=== PATIENT | female | born 1975 | race Caucasian/White ===

== ENCOUNTER 2016-08-05 09:59 | Emergency (ER) | payer BC ==
--- NOTE | 2016-08-05 11:00 | Emergency Department Record ---
History of Present Illness - General Chief complaint: Edema Stated complaint: LEG SWELLING Time Seen by Provider: 08/05/16 10:49 Source: Patient, RN notes reviewed Mode of Arrival: Ambulatory - History of Present Illness Initial comments: patient states swelling in her legs which started 2 days ago the right worse than the left and some right thigh pain. patient has breast cancer and needs more breast surgery and she also was diagnosed with polycystic ovarian disease and started on meloxicam 15 mg on 07/21/2016 for that. Onset/Timin -: Days(s) Location: Bilateral, Lower Leg, Thigh History of Same: Yes Improves with: Nothing Worsens with: Nothing Associated Symptoms: Denies other symptoms - Related Data Home Medications Medication Instructions Recorded Confirmed Last Taken Aspirin [Aspirin Ec] 81 mg PO QD tab 07/21/16 08/05/16 08/05/16 Cholecalciferol (Vitamin D3) 5,000 unit PO DAILY 08/05/16 08/05/16 08/05/16 [Vitamin D3] Previous Rx's Medication Instructions Recorded Triamterene/Hydrochlorothiazid 1 udcap PO DAILY #15 capsule 08/05/16 [Dyazide] Allergies Allergy/AdvReac Type Severity Reaction Status Date / Time cephalexin monohydrate Allergy Severe DIFFICULTY Verified 08/05/16 10:35 BREATHING levofloxacin Allergy Severe HIVES Verified 08/05/16 10:35 prednisone AdvReac Intermediate SKIN Verified 08/05/16 10:35 IRRITATION Travel Screening - Travel/Exposure Within Last 30 Days Have you traveled within the last 30 days?: No - Travel/Exposure Within Last Year Have you traveled outside the [place] in the last year?: No - Additonal Travel Details Have you been exposed to anyone with a communicable illness?: No - Travel Symptoms Symptom Screening: None Review of Systems Reviewed: No additional complaints except as noted below Constitutional: Reports: As per HPI. Denies: Chills, Fever, Malaise, Night sweats, Weakness, Weight change Eyes: Reports: As per HPI. Denies: Eye discharge, Eye pain, Photophobia, Vision change ENT: Reports: As per HPI. Denies: Congestion, Dental pain, Ear pain, Epistaxis , Hearing loss, Throat pain Respiratory: Reports: As per HPI. Denies: Cough, Dyspnea, Hemoptysis, Stridor, Wheezes Cardiovascular: Reports: As per HPI. Denies: Arrhythmia, Chest pain, Dyspnea on exertion, Edema, Murmurs, Orthopnea, Palpitations, Paroxysmal nocturnal dyspnea, Rheumatic Fever, Syncope Endocrine: Reports: As per HPI. Denies: Fatigue, Heat or cold intolerance, Polydipsia, Polyuria Gastrointestinal: Reports: As per HPI. Denies: Abdominal pain, Constipation, Diarrhea, Hematemesis, Hematochezia, Melena, Nausea, Vomiting Genitourinary: Reports: As per HPI. Denies: Abnormal menses, Discharge, Dyspareunia, Dysuria, Frequency, Hematuria, Incontinence, Retention, Urgency Musculoskeletal: Reports: As per HPI. Denies: Arthralgia, Back pain, Gout, Joint swelling, Myalgia, Neck pain Skin: Reports: As per HPI, Other (edema of both legs worse in the right). Denies: Bruising, Change in color, Change in hair/nails, Lesions, Pruritus, Rash Neurological: Reports: As per HPI. Denies: Abnormal gait, Confusion, Headache, Numbness, Paresthesias, Seizure, Tingling, Tremors, Vertigo, Weakness Psychiatric: Reports: As per HPI. Denies: Anxiety, Auditory hallucinations, Depression, Homicidal thoughts, Suicidal thoughts, Visual hallucinations Hematological/Lymphatic: Reports: As per HPI. Denies: Anemia, Blood Clots, Easy bleeding, Easy bruising, Swollen glands Past Medical History - SOCIAL HISTORY Smoking Status: Former smoker Alcohol Use: None Drug Use: None - RESPIRATORY Hx Respiratory Disorders: Yes Hx Asthma: Yes - CARDIOVASCULAR Hx Cardio Disorders: Yes Hx Chest Pain: Yes Hx Hypertension: Yes - NEURO Hx Neuro Disorders: Yes Hx Headaches: Yes - GI Hx GI Disorders: Yes Hx Irritable Bowel: Yes - Hx Genitourinary Disorders: No Comment:: CHRONIC YEAST ISSUES - ENDOCRINE Hx Endocrine Disorders: No Hx Diabetes: No Hx Thyroid Disease: No - MUSCULOSKELETAL Hx Musculoskeletal Disorders: No Comment:: LEFT PALM GANGLION. AUTO IMMUNE DX BUT NOT COMPLETELY DIAGNOSED - PSYCH Hx Psych Problems: Yes Hx Anxiety: Yes - HEMATOLOGY/ONCOLOGY Hx Hematology/Oncology Disorders: Yes Hx Cancer: Yes Comment:: Poss. APS Family Medical History Any Significant Family History?: Yes Family Hx Comment (NOT TO BE USED IN PLACE OF ITEMS BELOW): MOTHER HAD PROFERIA , CLOTTING ISSUES, PE. SISTER HAS AARON-DANLOS SYND.TYPE3 Hx Cancer: Grandparents Hx Heart Disease: Mother, Grandparents Physical Exam - General General Appearance: Alert, Oriented x3, Cooperative, No acute distress - Head Head exam: Normal inspection - Eye Eye exam: Normal appearance, PERRL Pupils: Normal accommodation - ENT ENT exam: Normal exam, Mucous membranes moist, Normal external ear exam, Normal orophraynx, TM's normal bilaterally Ear exam: Normal external inspection. negative: External canal tenderness Nasal Exam: Normal inspection. negative: Discharge, Sinus tenderness Mouth exam: Normal external inspection, Tongue normal Teeth exam: Normal inspection. negative: Dental caries Throat exam: Normal inspection. negative: Tonsillar erythema, Tonsillar exudate - Neck Neck exam: Normal inspection, Full ROM. negative: Tenderness - Respiratory Respiratory exam: Normal lung sounds bilaterally. negative: Respiratory distress - Cardiovascular Cardiovascular Exam: Regular rate, Normal rhythm, Normal heart sounds - GI/Abdominal GI/Abdominal exam: Soft, Normal bowel sounds. negative: Tenderness - Rectal Rectal exam: Deferred - exam: Deferred - Extremities Extremities exam: Normal inspection, Full ROM, Normal capillary refill. negative: Tenderness - Back Back exam: Reports: Normal inspection, Full ROM. Denies: Muscle spasm, Rash noted, Tenderness - Neurological Neurological exam: Alert, Normal gait, Oriented X3, Reflexes normal - Psychiatric Psychiatric exam: Normal affect, Normal mood - Skin Skin exam: Dry, Intact, Normal color, Warm Course Vital Signs 08/05/16 10:38 Temperature 98.1 F Pulse Rate 65 Respiratory 16 Rate Blood Pressure 131/95 Pulse Ox 98 Medical Decision Making - Lab Data Result diagrams: 08/05/16 11:20 08/05/16 11:20 Disposition Clinical Impression: Lymphedema Disposition: Home, Self-Care Condition: (1) Good Instructions: Leg Edema (ED) Additional Instructions: stop meloxicam No salt and elevate legs and wear knee high support socks Prescriptions: Triamterene/Hydrochlorothiazid [Dyazide] 1 udcap PO DAILY #15 capsule Forms: Patient Portal Access Time of Disposition: 12:07
[2016-08-05 11:26] LABS: EOS % 3.1 % (0-6); HEMATOCRIT 39.3 % (35.0-47.0); HEMOGLOBIN 13.5 gm/dl (11.6-16.0); LYMPH % 33.3 % (16-45); MEAN CELL VOLUME 85.8 fl (81-97); MEAN CORPUSCULAR HEMOGLOBIN 29.5 pg (27-33); MEAN CORPUSCULAR HGB CONC 34.4 g/dl (32-36); MONO % 8.6 % (0-9); PLATELET COUNT 201 K/uL (130-400); RED BLOOD COUNT 4.58 M/uL (3.80-5.40); RED CELL DISTRIBUTION WIDTH 12.5 % (11.5-14.5); WHITE BLOOD COUNT W/O DIFF 4.2 K/uL (4.2-12.2)
[2016-08-05 11:38] LABS: ANION GAP 4.3 (7-16); BLOOD UREA NITROGEN 12 mg/dL (7-17); CARBON DIOXIDE 24.7 mmol/L (22-30); CREATININE 0.8 mg/dL (0.52-1.04); EST GLOMERULAR FILTRATION RATE > 60 ml/min; GLUCOSE,RANDOM 91 mg/dL (70-110)
--- NOTE | 2016-08-05 12:13 | Emergency Department Record ---
History of Present Illness - General Chief complaint: Edema Stated complaint: LEG SWELLING Time Seen by Provider: 08/05/16 10:49 Source: Patient, RN notes reviewed Mode of Arrival: Ambulatory - History of Present Illness Onset/Timin -: Days(s) Location: Bilateral, Lower Leg, Thigh History of Same: Yes Improves with: Nothing Worsens with: Nothing Associated Symptoms: Denies other symptoms - Related Data Home Medications Medication Instructions Recorded Confirmed Last Taken Aspirin [Aspirin Ec] 81 mg PO QD tab 07/21/16 08/05/16 08/05/16 Cholecalciferol (Vitamin D3) 5,000 unit PO DAILY 08/05/16 08/05/16 08/05/16 [Vitamin D3] Previous Rx's Medication Instructions Recorded Triamterene/Hydrochlorothiazid 1 udcap PO DAILY #15 capsule 08/05/16 [Dyazide] Triamterene/Hydrochlorothiazid 1 udcap PO DAILY #15 capsule 08/05/16 [Dyazide] Allergies Allergy/AdvReac Type Severity Reaction Status Date / Time cephalexin monohydrate Allergy Severe DIFFICULTY Verified 08/05/16 10:35 BREATHING levofloxacin Allergy Severe HIVES Verified 08/05/16 10:35 prednisone AdvReac Intermediate SKIN Verified 08/05/16 10:35 IRRITATION Travel Screening - Travel/Exposure Within Last 30 Days Have you traveled within the last 30 days?: No - Travel/Exposure Within Last Year Have you traveled outside the [place] in the last year?: No - Additonal Travel Details Have you been exposed to anyone with a communicable illness?: No - Travel Symptoms Symptom Screening: None Review of Systems Constitutional: Reports: As per HPI. Denies: Chills, Fever, Malaise, Night sweats, Weakness, Weight change Eyes: Reports: As per HPI. Denies: Eye discharge, Eye pain, Photophobia, Vision change ENT: Reports: As per HPI. Denies: Congestion, Dental pain, Ear pain, Epistaxis , Hearing loss, Throat pain Respiratory: Reports: As per HPI. Denies: Cough, Dyspnea, Hemoptysis, Stridor, Wheezes Cardiovascular: Reports: As per HPI. Denies: Arrhythmia, Chest pain, Dyspnea on exertion, Edema, Murmurs, Orthopnea, Palpitations, Paroxysmal nocturnal dyspnea, Rheumatic Fever, Syncope Endocrine: Reports: As per HPI. Denies: Fatigue, Heat or cold intolerance, Polydipsia, Polyuria Gastrointestinal: Reports: As per HPI. Denies: Abdominal pain, Constipation, Diarrhea, Hematemesis, Hematochezia, Melena, Nausea, Vomiting Genitourinary: Reports: As per HPI. Denies: Abnormal menses, Discharge, Dyspareunia, Dysuria, Frequency, Hematuria, Incontinence, Retention, Urgency Musculoskeletal: Reports: As per HPI. Denies: Arthralgia, Back pain, Gout, Joint swelling, Myalgia, Neck pain Skin: Reports: As per HPI, Other (edema of both legs worse in the right). Denies: Bruising, Change in color, Change in hair/nails, Lesions, Pruritus, Rash Neurological: Reports: As per HPI. Denies: Abnormal gait, Confusion, Headache, Numbness, Paresthesias, Seizure, Tingling, Tremors, Vertigo, Weakness Psychiatric: Reports: As per HPI. Denies: Anxiety, Auditory hallucinations, Depression, Homicidal thoughts, Suicidal thoughts, Visual hallucinations Hematological/Lymphatic: Reports: As per HPI. Denies: Anemia, Blood Clots, Easy bleeding, Easy bruising, Swollen glands Past Medical History - SOCIAL HISTORY Smoking Status: Former smoker Alcohol Use: None Drug Use: None - RESPIRATORY Hx Respiratory Disorders: Yes Hx Asthma: Yes - CARDIOVASCULAR Hx Cardio Disorders: Yes Hx Chest Pain: Yes Hx Hypertension: Yes - NEURO Hx Neuro Disorders: Yes Hx Headaches: Yes - GI Hx GI Disorders: Yes Hx Irritable Bowel: Yes - Hx Genitourinary Disorders: No Comment:: CHRONIC YEAST ISSUES - ENDOCRINE Hx Endocrine Disorders: No Hx Diabetes: No Hx Thyroid Disease: No - MUSCULOSKELETAL Hx Musculoskeletal Disorders: No Comment:: LEFT PALM GANGLION. AUTO IMMUNE DX BUT NOT COMPLETELY DIAGNOSED - PSYCH Hx Psych Problems: Yes Hx Anxiety: Yes - HEMATOLOGY/ONCOLOGY Hx Hematology/Oncology Disorders: Yes Hx Cancer: Yes Comment:: Poss. APS Family Medical History Any Significant Family History?: Yes Family Hx Comment (NOT TO BE USED IN PLACE OF ITEMS BELOW): MOTHER HAD PROFERIA , CLOTTING ISSUES, PE. SISTER HAS AARON-DANLOS SYND.TYPE3 Hx Cancer: Grandparents Hx Heart Disease: Mother, Grandparents Course Vital Signs 08/05/16 10:38 Temperature 98.1 F Pulse Rate 65 Respiratory 16 Rate Blood Pressure 131/95 Pulse Ox 98 Medical Decision Making - Lab Data Result diagrams: 08/05/16 11:20 08/05/16 11:20 Lab Results 08/05/16 08/05/16 08/05/16 Range/Units 11:20 11:20 11:20 WBC 4.2 (4.2-12.2) K/uL RBC 4.58 (3.80-5.40) M/uL Hgb 13.5 (11.6-16.0) gm/dl Hct 39.3 (35.0-47.0) % MCV 85.8 (81-97) fl MCH 29.5 (27-33) pg MCHC 34.4 (32-36) g/dl RDW 12.5 (11.5-14.5) % Plt Count 201 (130-400) K/uL MPV 10.0 (7.4-10.4) fl Gran % 54.0 (47-80) % Lymphocytes % 33.3 (16-45) % Monocytes % 8.6 (0-9) % Eosinophils % 3.1 (0-6) % Basophils % 1.0 (0-6) % APTT 26.00 (24.5-39.1) SECONDS Sodium 138 (136-145) mmol/L Potassium 4.1 (3.5-5.1) mmol/L Chloride 109 H (98-107) mmol/L Carbon Dioxide 24.7 (22-30) mmol/L Anion Gap 4.3 L (7-16) BUN 12 (7-17) mg/dL Creatinine 0.8 (0.52-1.04) mg/dL Estimated GFR > 60 ml/min Random Glucose 91 (70-110) mg/dL Calcium 8.9 (8.5-10.1) mg/dL Disposition Clinical Impression: Lymphedema Disposition: Home, Self-Care Condition: (1) Good Instructions: Leg Edema (ED) Additional Instructions: stop meloxicam No salt and elevate legs and wear knee high support socks Prescriptions: Triamterene/Hydrochlorothiazid [Dyazide] 1 udcap PO DAILY #15 capsule Triamterene/Hydrochlorothiazid [Dyazide] 1 udcap PO DAILY #15 capsule Forms: Patient Portal Access Time of Disposition: 12:12
--- NOTE | 2016-08-07 15:39 | US VENOUS DOPPLER REPORT ---
EXAM: ULTRASOUND VENOUS DOPPLER LOWER EXT RT HISTORY: POSTERIOR THIGH PAIN FOR ONE DAY. SWELLING A FEW DAYS. TECHNIQUE: Real-time rosas-scale sonographic imaging of the right lower extremity deep venous system was performed with Doppler as well as spectral waveform analysis. COMPARISON: None. FINDINGS: There is normal color-flow and compressibility in the following vessels: right common femoral vein, right greater saphenous vein, right superficial femoral vein, right profunda femoral vein, right popliteal vein, right posterior tibial vein, right anterior tibial vein, right peroneal vein. Normal respiratory phasicity in the common femoral vein. IMPRESSION: NORMAL STUDY WITH NO SONOGRAPHIC EVIDENCE OF RIGHT LOWER EXTREMITY DVT. JOB NUMBER: [id number] MTDD
== END 2016-08-05 12:23 | disposition home or self-care (01) ==
LOC: ER 09:59
DX: I89.0 Lymphedema, not elsewhere classified (principal); M79.652 Pain in left thigh; M79.651 Pain in right thigh
CPT/HCPCS: 80048; 85025; 85730; 99283